=== PATIENT | male | born 1990 | race Caucasian/White ===

== ENCOUNTER 2017-03-11 07:46 | Emergency (ER) | payer SELFPAY ==
--- NOTE | 2017-03-11 08:13 | ER Document Report ---
ED General - General Chief Complaint: Knee Injury Stated Complaint: KNEE PAIN Time Seen by Provider: 03/11/17 08:01 Mode of Arrival: Ambulatory Information source: Patient Notes: 26-year-old male presents with complaints of right knee pain after roughhousing with a friend. Patient states he felt a pop sensation and feels that his knee moves side to side. Patient is able to bear weight but notes it feels weak TRAVEL OUTSIDE OF THE [place] IN LAST 30 DAYS: No - HPI Onset: Just prior to arrival Onset/Duration: Sudden Quality of pain: Sharp Severity: Mild Pain Level: 2 Associated symptoms: Body/muscle aches Exacerbated by: Movement, Walking Relieved by: Denies Similar symptoms previously: No Recently seen / treated by doctor: No - Related Data Allergies/Adverse Reactions: No Known Allergies Allergy (Unverified 03/11/17 07:47) Past Medical History - Social History Smoking Status: Current Every Day Smoker Cigarette use (# per day): Yes Chew tobacco use (# tins/day): No Smoking Education Provided: No Family History: Reviewed & Not Pertinent Patient has suicidal ideation: No Patient has homicidal ideation: No Renal/ Medical History: Denies: Hx Peritoneal Dialysis Review of Systems - Review of Systems Notes: REVIEW OF SYSTEMS: CONSTITUTIONAL : Denies fever, chills, or sweats. Denies recent illness. EENT: Denies eye, ear, throat, or mouth pain or symptoms. Denies nasal or sinus congestion or discharge. Denies throat, tongue, or mouth swelling or difficulty swallowing. CARDIOVASCULAR: Denies chest pain. Denies palpitations or racing or irregular heart beat. Denies ankle edema. RESPIRATORY: Denies cough, cold, or chest congestion. Denies shortness of breath, difficulty breathing, or wheezing. GASTROINTESTINAL: Denies abdominal pain or distention. Denies nausea, vomiting , or diarrhea. Denies blood in vomitus, stools, or per rectum. Denies black, tarry stools. Denies constipation. GENITOURINARY: Denies difficulty urinating, painful urination, burning, frequency, blood in urine, or discharge. MUSCULOSKELETAL: Admits to right knee pain SKIN: Denies rash, lesions or sores. HEMATOLOGIC : Denies easy bruising or bleeding. LYMPHATIC: Denies swollen, enlarged glands. NEUROLOGICAL: Denies confusion or altered mental status. Denies passing out or loss of consciousness. Denies dizziness or lightheadedness. Denies headache. Denies weakness or paralysis or loss of use of either side. Denies problems with gait or speech. Denies sensory loss, numbness, or tingling. Denies seizures. PSYCHIATRIC: Denies anxiety or stress. Denies depression, suicidal ideation, or homicidal ideation. ALL OTHER SYSTEMS REVIEWED AND NEGATIVE. Dictation was performed using [employer] voice recognition software PHYSICAL EXAMINATION: GENERAL: Well-appearing, well-nourished and in no acute distress. HEAD: Atraumatic, normocephalic. EYES: Pupils equal round and reactive to light, extraocular movements intact, sclera anicteric, conjunctiva are normal. ENT: Nares patent, oropharynx clear without exudates. Moist mucous membranes. NECK: Normal range of motion, supple without lymphadenopathy LUNGS: Breath sounds clear to auscultation bilaterally and equal. No wheezes rales or rhonchi. HEART: Regular rate and rhythm without murmurs ABDOMEN: Soft, nontender, nondistended abdomen. No guarding, no rebound. No masses appreciated. Musculoskeletal: no laxity noted, tender over the medial aspect of the right knee NEUROLOGICAL: Cranial nerves grossly intact. Normal speech, normal gait. Normal sensory, motor exams PSYCH: Normal mood, normal affect. SKIN: Warm, Dry, normal turgor, no rashes or lesions noted. Physical Exam - Vital signs Vitals: Temp Pulse Resp BP Pulse Ox 98.3 F 93 20 130/70 H 97 03/11/17 07:49 03/11/17 07:49 03/11/17 07:49 03/11/17 07:49 03/11/17 07:49 Course - Re-evaluation Re-evalutation: 03/11/17 09:10 X-ray is consistent with small effusion, I believe given patient's injury that there is a tendon rupture or tear, I will give patient a knee immobilizer pain control and follow-up with orthopedics with crutches After performing a Medical Screening Examination, I estimate there is LOW risk for INTRACRANIAL HEMORRHAGE, UNSTABLE SPINE FRACTURE, CENTRAL CORD SYNDROME, CAUDA EQUINA, THORACIC AORTIC DISSECTION, PNEUMOTHORAX, PERFORATED BOWEL, RUPTURED ABDOMINAL AORTIC ANEURYSM, ACUTE TENDON RUPTURE, COMPARTMENT SYNDROME, or OPEN FRACTURE, thus I consider the discharge disposition reasonable. Also, there is no evidence or peritonitis, sepsis, or toxicity. I have reevaluated this patient multiple times and no significant life threatening changes are noted. The patient and I have discussed the diagnosis and risks, and we agree with discharging home to follow-up with their primary doctor with the understanding that symptoms and presentations can change. We also discussed returning to the Emergency Department immediately if new or worsening symptoms occur. We have discussed the symptoms which are most concerning (e.g., bloody stool, fever, changing or worsening pain, vomiting) that necessitate immediate return. - Vital Signs Vital signs: Temp Pulse Resp BP Pulse Ox 98.3 F 93 20 130/70 H 97 03/11/17 07:49 03/11/17 07:49 03/11/17 07:49 03/11/17 07:49 03/11/17 07:49 - Diagnostic Test Radiology reviewed: Image reviewed - report given to patient, Reports reviewed Discharge - Discharge Clinical Impression: tendon injury knee Right knee pain Qualifiers: Chronicity: acute Qualified Code(s): M25.561 - Pain in right knee Condition: Stable Disposition: HOME, SELF-CARE Instructions: Suspected Internal Knee Injury ([facility]) Prescriptions: Hydrocodone/Acetaminophen [[place] 5-325 mg Tablet] 1 tab PO Q6 #14 tablet Referrals: RADHA STOUT MD [ACTIVE STAFF] - Follow up tomorrow
[2017-03-11] MEDS ORDERED: HYDROCODONE/ACETAMINOPHEN 5-325 MG TABLET PO ONE (08:45)
--- NOTE | 2017-03-11 09:07 | RADIOLOGY REPORT (SQ) ---
EXAM DESCRIPTION: KNEE RIGHT 4 VIEWS COMPLETED DATE/TIME: 03/11/2017 8:26 am REASON FOR STUDY: injury COMPARISON: None. NUMBER OF VIEWS: Four views. TECHNIQUE: AP, lateral, and both oblique radiographic images acquired of the right knee. LIMITATIONS: None. FINDINGS: MINERALIZATION: Normal. BONES: No acute fracture or dislocation. No worrisome bone lesions. JOINT: Trace suprapatellar knee joint effusion. SOFT TISSUES: No soft tissue swelling. No radio-opaque foreign body. OTHER: No other significant finding. IMPRESSION: Trace suprapatellar knee joint effusion. No acute fracture or malalignment TECHNICAL DOCUMENTATION: JOB ID: [id number] [employer]- All Rights Reserved
[2017-03-11 09:29] VITALS: BP 142/66
== END 2017-03-11 09:28 | disposition home or self-care (01) ==
LOC: ER 07:46
DX: S89.90XA Unspecified injury of unspecified lower leg, initial encounter (principal); M25.561 Pain in right knee; X50.0XXA Overexertion from strenuous movement or load, initial encounter; Y93.83 Activity, rough housing and horseplay; F17.210 Nicotine dependence, cigarettes, uncomplicated
CPT/HCPCS: 99283; 73564; L1830

== ENCOUNTER 2018-02-11 22:45 | Emergency (ER) | payer SELFPAY ==
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
[2018-02-12] MEDS ORDERED: OXYCODONE-ACETAMINOPHEN 5-325 MG TABLET PO ONE (00:13)
[2018-02-12] MEDS ORDERED: IBUPROFEN 800 MG TABLET PO ONE (00:14)
[2018-02-12 01:50] VITALS: BP 141/78
== END 2018-02-12 00:45 | disposition home or self-care (01) ==
LOC: ER 22:45
DX: S89.91XA Unspecified injury of right lower leg, initial encounter (principal); F17.210 Nicotine dependence, cigarettes, uncomplicated; W14.XXXA Fall from tree, initial encounter; Y92.009 Unspecified place in unspecified non-institutional (private) residence as the place of occurrence of the external cause
CPT/HCPCS: 99283; 73564; L1830

== ENCOUNTER 2018-11-07 23:30 | Emergency (ER) | payer OTHER ==
[2018-11-08] MEDS ORDERED: FENTANYL CITRATE INJ/PF 100 MCG/2 ML AMPUL IV ONE (00:25)
[2018-11-08 00:32] VITALS: BP 122/82
[2018-11-08] MEDS ORDERED: NORMAL SALINE 1000 ML 1,000 ML IV ONE (00:32)
[2018-11-08 00:51] LABS: ABSOLUTE LYMPHOCYTES (AUTO) 2.4 10^3/uL (0.5-4.7); ABSOLUTE MONOCYTES (AUTO) 1.4 10^3/uL (0.1-1.4); ABSOLUTE NEUT (AUTO) 11.6 10^3/uL (1.7-8.2); BASOPHILS % (AUTO) 0.3 % (0-2); EOSINOPHILS % (AUTO) 0.3 % (0-6); HEMATOCRIT 47.5 % (37.9-51.0); HEMOGLOBIN 16.1 g/dL (13.5-17.0); LYMPHOCYTES % (AUTO) 15.5 % (13-45); MEAN CORPUSCULAR HEMOGLOBIN 30.8 pg (27.0-33.4); MEAN CORPUSCULAR HGB CONC 33.9 g/dL (32.0-36.0); MEAN CORPUSCULAR VOLUME 91 fl (80-97); PLATELET COUNT 255 10^3/uL (150-450); RED BLOOD COUNT 5.22 10^6/uL (4.35-5.55); RED CELL DISTRIBUTION WIDTH 14.2 % (11.5-14.0); SEGMENTED NEUTROPHILS % (AUTO) 74.9 % (42-78); TOTAL CELLS COUNTED % (AUTO) 100 %; WHITE BLOOD COUNT 15.5 10^3/uL (4.0-10.5)
[2018-11-08 01:13] LABS: ALANINE AMINOTRANSFERASE 20 U/L (21-72); ALBUMIN 3.8 g/dL (3.5-5.0); ALKALINE PHOSPHATASE 61 U/L (38-126); ANION GAP 11 (5-19); ASPARTATE AMINO TRANSFERASE 22 U/L (17-59); BILIRUBIN,DIRECT 0.3 mg/dL (0.0-0.4); BILIRUBIN,TOTAL 0.8 mg/dL (0.2-1.3); BLOOD UREA NITROGEN 19 mg/dL (7-20); CALCIUM 9.1 mg/dL (8.4-10.2); CARBON DIOXIDE 21 mmol/L (22-30); CHLORIDE 106 mmol/L (98-107); GLUCOSE 88 mg/dL (75-110); POTASSIUM 4.3 mmol/L (3.6-5.0); TOTAL PROTEIN 6.4 g/dL (6.3-8.2)
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
[2018-11-08] MEDS ORDERED: ACETAMINOPHEN 325 MG TABLET PO ONE (02:48)
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
[2018-11-08] MEDS ORDERED: KETOROLAC TROMETHAMINE INJ/PF 30 MG/1 ML SDV IV ONE (03:12)
[2018-11-08 03:35] LABS: APPEARANCE,URINE CLEAR; BILIRUBIN,URINE NEGATIVE (NEGATIVE); COLOR,URINE YELLOW; GLUCOSE, URINE NEGATIVE (NEGATIVE); KETONES,URINE 20 mg/dL (NEGATIVE); LEUKOCYTE ESTERASE,URINE NEGATIVE (NEGATIVE); NITRITE,URINE NEGATIVE (NEGATIVE); PROTEIN,URINE 30 mg/dL (NEGATIVE); URINE SPECIFIC GRAVITY 1.045; UROBILINOGEN,URINE NEGATIVE mg/dL (<2.0)
== END 2018-11-08 03:34 | disposition home or self-care (01) ==
LOC: ER 23:30
DX: M25.551 Pain in right hip (principal); S70.12XA Contusion of left thigh, initial encounter; S70.11XA Contusion of right thigh, initial encounter; R10.84 Generalized abdominal pain; R10.817 Generalized abdominal tenderness; M54.9 Dorsalgia, unspecified; N48.89 Other specified disorders of penis; R41.3 Other amnesia; V03.10XA Pedestrian on foot injured in collision with car, pick-up truck or van in traffic accident, initial encounter; Y92.411 Interstate highway as the place of occurrence of the external cause; Y93.01 Activity, walking, marching and hiking; F17.200 Nicotine dependence, unspecified, uncomplicated; F12.10 Cannabis abuse, uncomplicated; D72.829 Elevated white blood cell count, unspecified
CPT/HCPCS: 99284; 96361; 96374; 96375; 36415; 85025; 80053; 81001; 70450; 71260; 74177; J3010; J1885; J7030

== ENCOUNTER 2019-01-16 14:25 | Emergency (ER) | payer SELFPAY ==
[2019-01-16] MEDS ORDERED: LIDOCAINE 1%/EPINEPHRINE INJ 20 ML VIAL INJ ONE (15:19)
--- NOTE | 2019-01-16 15:23 | ER Document Report ---
ED Medical Screen (RME) - General Chief Complaint: Suicidal Ideation Stated Complaint: PSYCH Time Seen by Provider: 01/16/19 15:08 Notes: Patient is a 28-year-old male who presents the emergency department with suicidal ideation. He feels suicidal at this time. He attempted to cut himself and he stated, "I just wanted to finish myself.". He has depression and stress. He is also on human growth hormone. He admits to smoking marijuana. He drinks 340 ounces a day. Last drink was at 10:00 this morning. He is up-to-date on his tetanus vaccine. Exam: Right forearm laceration about 3 cm in length. Multiple superficial cuts noted to right arm. I have greeted and performed a rapid initial assessment of this patient. A comprehensive ED assessment and evaluation of the patient, analysis of test results and completion of medical decision making process will be conducted by an additional ED providers. TRAVEL OUTSIDE OF THE [place] IN LAST 30 DAYS: No - Related Data Allergies/Adverse Reactions: No Known Allergies Allergy (Verified 01/16/19 15:06) Past Medical History - Social History Chew tobacco use (# tins/day): No Frequency of alcohol use: Heavy Drug Abuse: Marijuana Renal/ Medical History: Denies: Hx Peritoneal Dialysis Physical Exam - Vital signs Vitals: Temp Pulse Resp BP Pulse Ox 98.3 F 83 18 132/73 H 97 01/16/19 14:33 01/16/19 14:33 01/16/19 14:33 01/16/19 14:33 01/16/19 14:33 Course - Vital Signs Vital signs: Temp Pulse Resp BP Pulse Ox 98.3 F 83 18 132/73 H 97 01/16/19 14:33 01/16/19 14:33 01/16/19 14:33 01/16/19 14:33 01/16/19 14:33
[2019-01-16 15:56] LABS: ABSOLUTE BASOPHILS # (AUTO) 0.2 10^3/uL (0.0-0.2); ABSOLUTE LYMPHOCYTES (AUTO) 1.7 10^3/uL (0.5-4.7); ABSOLUTE MONOCYTES (AUTO) 1.1 10^3/uL (0.1-1.4); ABSOLUTE NEUT (AUTO) 11.1 10^3/uL (1.7-8.2); BASOPHILS % (AUTO) 1.1 % (0-2); EOSINOPHILS % (AUTO) 0.1 % (0-6); HEMATOCRIT 47.4 % (37.9-51.0); MEAN CORPUSCULAR HEMOGLOBIN 31.8 pg (27.0-33.4); MEAN CORPUSCULAR HGB CONC 33.8 g/dL (32.0-36.0); MEAN CORPUSCULAR VOLUME 94 fl (80-97); MONOCYTES % (AUTO) 8.2 % (3-13); PLATELET COUNT 256 10^3/uL (150-450); RED BLOOD COUNT 5.04 10^6/uL (4.35-5.55); RED CELL DISTRIBUTION WIDTH 13.7 % (11.5-14.0); SEGMENTED NEUTROPHILS % (AUTO) 78.6 % (42-78); TOTAL CELLS COUNTED % (AUTO) 100 %; WHITE BLOOD COUNT 14.1 10^3/uL (4.0-10.5)
[2019-01-16 16:00] LABS: APPEARANCE,URINE CLEAR; BILIRUBIN,URINE NEGATIVE (NEGATIVE); COLOR,URINE YELLOW; GLUCOSE, URINE NEGATIVE (NEGATIVE); KETONES,URINE NEGATIVE (NEGATIVE); LEUKOCYTE ESTERASE,URINE NEGATIVE (NEGATIVE); NITRITE,URINE NEGATIVE (NEGATIVE); PROTEIN,URINE NEGATIVE (NEGATIVE); URINE SPECIFIC GRAVITY 1.008; UROBILINOGEN,URINE NEGATIVE mg/dL (<2.0)
[2019-01-16 16:17] LABS: ALBUMIN 4.2 g/dL (3.5-5.0); ALKALINE PHOSPHATASE 71 U/L (38-126); ANION GAP 6 (5-19); ASPARTATE AMINO TRANSFERASE 22 U/L (17-59); BILIRUBIN,DIRECT 0.1 mg/dL (0.0-0.4); BILIRUBIN,TOTAL 0.4 mg/dL (0.2-1.3); BLOOD UREA NITROGEN 9 mg/dL (7-20); CALCIUM 9.4 mg/dL (8.4-10.2); CARBON DIOXIDE 28 mmol/L (22-30); CHLORIDE 107 mmol/L (98-107); GLUCOSE 85 mg/dL (75-110); POTASSIUM 4.8 mmol/L (3.6-5.0); TOTAL PROTEIN 7.1 g/dL (6.3-8.2); URINE AMPHETAMINES SCREEN NEGATIVE; URINE BARBITURATES SCREEN NEGATIVE; URINE BENZODIAZEPINES SCREEN NEGATIVE; URINE COCAINE SCREEN NEGATIVE; URINE MARIJUANA (THC) SCREEN UNCONFIRMED POSITIVE; URINE METHADONE SCREEN NEGATIVE; URINE PHENCYCLIDINE SCREEN NEGATIVE
[2019-01-16 16:21] LABS: ACETAMINOPHEN < 10 ug/mL (10-30); ALCOHOL < 10 mg/dL (NONE DETECTED); SALICYLATE < 1.0 mg/dL (2.0-20.0)
[2019-01-16] MEDS ORDERED: NICOTINE 21 MG/24 HR PATCH.TD24 TD ONE (17:27)
--- NOTE | 2019-01-16 17:34 | PSYCHOLOGICAL NOTE ---
Psych Note - Psych Note Date seen by psych provider: 01/16/19 Time seen by psych provider: 16:50 Psych Note: Reason for Consult: Suicidal ideation Sent permissions: Patient's girlfriend, Akila, at bedside per patient's request Patient is a 28-year-old male who presents the emergency department with suicidal ideation. He feels suicidal at this time. He attempted to cut himself and he stated, "I just wanted to finish myself.". He has depression and stress. He is also on human growth hormone. He admits to smoking marijuana. He drinks 340 ounces a day. Last drink was at 10:00 this morning. Patient reports that he was brought [facility] by his girlfriend for suicidal ideation. He reports that he was "filleting himself." He denies normally engaging in self-harm confirms previous attempts and when he was younger. Patient disclosed that his parents when he was 10 and was in foster care for the rest of his adolescence. He reports that he was told his parents were on vacation in [place] when their private plane went down and no one was found. He reports he is unsure because he was only 10 at the time. Patient disclosed that from 10 to 15 years old he attempted to hang himself 4 times and needed to be cut down. Patient denies any attempts at suicide since 15 years old. Patient disclosed that every year at this time he always has difficulties because he feels he is never been able to get over losing his parents. He reports that he is "getting older" and feels that "the crap I am going through just hit me like a ton of bricks." He states that financial difficulties having difficulty being employed and states "it is always something new." Patient reports that he was illegally using the human growth hormone and attempted to change the way he looked; "I wanted to change the way I looked I want to be bigger and stronger." He states that he did 2 sessions at however is been off of it for 2 to 3 weeks but reports continued "roid rages" and quickly getting angry. He continued to report that typically November 03 is very difficult because of his mom's birthday and January through March are very bad because the holidays. Patient denies ever having inpatient psychiatric treatment and has not had any outpatient psychiatric treatment "for the last 20 years." Patient states that approximately a week and 1/2 to 2 weeks ago he was donating plasma when he was pulled aside and states he was told there was concern that his blood cells were rapidly deteriorating and turning black. He was told he likely had multiple melanoma. He reports that he has been "throwing up and pooping blood" and last few days has developed an upper respiratory issue. He describes feeling "scared shitless" and having difficulty sleeping. He denies following up with a medical doctor yet and states that he just submitted Medicaid paperwork the day before yesterday. Patient is alert and orientated to person, place, time and circumstance. Mood is dysphoric with congruent affect. Patient endorses suicidal ideation with cutting. Patient denies homicidal ideation. Delusions are absent and behaviors congruent with an intact reality based presentation I organized and linear thought process. Eye contact is well-maintained. Conversational speech is within normal rate, tone and prosody. Intellectual abilities appear to be within the average range. Attention and concentration are good. Insight, judgment, impulse control are fair. Diagnosis: Suicidal ideation with multiple superficial cuts Medication recommendations per [facility]'s contracted psychiatrist Dr. Galina TRAN are as follows Impression\\plan: Patient is recommended for [facility] petition for overnight mental health observation. Patient presents after engaging in self-harm behavior and denies any previous maladaptive coping skill of cutting engagement. Patient states he has not attempted suicide since the age of 15. Patient denies any mental health services. Patient identifies multiple triggers to include loss of parents, growing up in the foster care system, using steroids and attempt to body build, and finding out he has cancer. She will be reevaluated Dr. Beck was consulted to care management of this patient; attending physicians in agreement with recommendations and disposition.
--- NOTE | 2019-01-16 17:39 | EKG REPORT ---
SEVERITY:- ABNORMAL ECG - SINUS RHYTHM PROBABLE LEFT VENTRICULAR HYPERTROPHY ST ELEV, PROBABLE NORMAL EARLY REPOL PATTERN TALL T WAVES, PROBABLY NORMAL VARIANT : Confirmed by: Tyler Kaufman MD 16-Jan-2019 17:38:49
[2019-01-17] MEDS ORDERED: OLANZAPINE 5 MG TAB.RAPDIS PO ONE ×2 (02:13→17:18)
[2019-01-17] MEDS ORDERED: KETOROLAC TROMETHAMINE 60 MG/2 ML SDV IM ONE (02:13)
--- NOTE | 2019-01-17 02:46 | ER Document Report ---
ED Psych Disorder / Suicide - General Chief Complaint: Suicidal Ideation Stated Complaint: PSYCH Time Seen by Provider: 01/16/19 15:08 Notes: Patient is a 28-year-old male who comes in today with suicidal ideation and self-inflicted wound with a knife. Patient apparently has been taking human growth hormone recently because he was hoping to gain muscle mass. Patient has had incidence of "roid rage." He has multiple self-inflicted lacerations to his arms. He did this with a hunting knife. Last tetanus was within the last year. Patient states that he lost his job and this is what precipitated this event today. TRAVEL OUTSIDE OF THE [place] IN LAST 30 DAYS: No - HPI Patient complains to provider of: Suicidal ideation, Self injury Suicide Risk Factors: Frightened friends/family Situational problems related to: Lost job Suicide Attempt Method: Stabbing/Cutting Injury to: Upper extremity - Related Data Allergies/Adverse Reactions: No Known Allergies Allergy (Verified 01/16/19 15:06) Past Medical History - Social History Smoking Status: Current Every Day Smoker Chew tobacco use (# tins/day): No Frequency of alcohol use: Heavy Drug Abuse: Marijuana Family History: Reviewed & Not Pertinent Patient has suicidal ideation: Yes Patient has homicidal ideation: No - Medical History Medical History: Negative Renal/ Medical History: Denies: Hx Peritoneal Dialysis Surgical Hx: Negative - Immunizations Immunizations up to date: Yes Review of Systems - Review of Systems Constitutional: No symptoms reported EENT: No symptoms reported Cardiovascular: No symptoms reported Respiratory: No symptoms reported Gastrointestinal: No symptoms reported Genitourinary: No symptoms reported Male Genitourinary: No symptoms reported Musculoskeletal: No symptoms reported Skin: See HPI Hematologic/Lymphatic: No symptoms reported Neurological/Psychological: See HPI Physical Exam - Vital signs Vitals: Temp Pulse Resp BP Pulse Ox 98.3 F 83 18 132/73 H 97 01/16/19 14:33 01/16/19 14:33 01/16/19 14:33 01/16/19 14:33 01/16/19 14:33 Interpretation: Normal - General General appearance: Appears well, Alert - HEENT Head: Normocephalic, Atraumatic Eyes: Normal Pupils: PERRL - Respiratory Respiratory status: No respiratory distress Chest status: Nontender Breath sounds: Normal Chest palpation: Normal - Cardiovascular Rhythm: Regular Heart sounds: Normal auscultation Murmur: No - Abdominal Inspection: Normal Distension: No distension Bowel sounds: Normal Tenderness: Nontender Organomegaly: No organomegaly - Back Back: Normal, Nontender - Extremities General upper extremity: Normal inspection, Nontender, Normal color, Normal ROM, Normal temperature General lower extremity: Normal inspection, Nontender, Normal color, Normal ROM, Normal temperature, Normal weight bearing. No: Camila's sign - Neurological Neuro grossly intact: Yes Cognition: Normal Orientation: AAOx4 Megan Coma Scale Eye Opening: Spontaneous Damar Coma Scale Verbal: Oriented Megan Coma Scale Motor: Obeys Commands Megan Coma Scale Total: 15 Speech: Normal Motor strength normal: LUE, RUE, LLE, RLE Sensory: Normal - Psychological Associated symptoms: Normal affect, Normal mood - Skin Skin Temperature: Warm Skin Moisture: Dry Skin Color: Normal Skin irregularity: Laceration - Multiple lacerations to bilateral upper extremities. Right wrist with 3 cm laceration. Course - Re-evaluation Re-evalutation: 01/17/19 02:47 Patient is a 28-year-old male with suicidal ideation recently using male growth hormone who lost his job and comes in with multiple self-inflicted lacerations and suicidal ideation. He has been calm in the emergency department been having a difficult time sleeping. Zyprexa ordered and Toradol given for pain in arm due to lacerations. Please see procedure note. He will be evaluated by mental health in the morning. Otherwise medically stable. Tetanus up-to-date. - Vital Signs Vital signs: Temp Pulse Resp BP Pulse Ox 98.6 F 67 18 122/72 100 01/16/19 20:29 01/16/19 20:29 01/16/19 14:33 01/16/19 20:29 01/16/19 20:29 - Laboratory Result Diagrams: 01/16/19 15:30 01/16/19 15:30 Laboratory results interpreted by me: 01/16/19 01/16/19 15:30 15:30 WBC 14.1 H Lymph % (Auto) 12.0 L Absolute Neuts (auto) 11.1 H Seg Neutrophils % 78.6 H Salicylates < 1.0 L Acetaminophen < 10 L Procedures - Laceration/Wound Repair Right Wound length (cm): 3 Wound's Depth, Shape: Linear Laceration pre-procedure: Sterile PPE donned, Sterile drapes applied Anesthetic type: 1% Lidocaine Wound explored: Clean Irrigated w/ Saline (mLs): 20 Wound Repaired With: Sutures Suture Size/Type: 5:0 Number of Sutures: 8 Layer Closure?: No Post-procedure wound care: Sterile dressing applied Post-procedure NV exam normal: Yes Complications: No Discharge - Discharge Clinical Impression: Suicidal ideation Self-inflicted laceration of wrist Qualifiers: Encounter type: initial encounter Laterality: right Qualified Code(s): S61.511A - Laceration without foreign body of right wrist, initial encounter Condition: Stable Disposition: OTHER
[2019-01-17] MEDS ORDERED: ACETAMINOPHEN 325 MG TABLET PO ONE (14:01)
--- NOTE | 2019-01-17 17:20 | ER Document Report ---
Doctor's Note Notes: 01/17/19 17:19 Nurse's notes reviewed, physician notes reviewed as well as mental health notes reviewed. Afebrile vital stable no distress. Clinical exam was unremarkable, patient did report some pain due to having laceration that was repaired. No fevers or chills, denies any homicidal suicidal ideation. Eating and drinking without any issues. Patient given oral Tylenol for pain control. We will continue to monitor.
[2019-01-17] MEDS ORDERED: NICOTINE 21 MG/24 HR PATCH.TD24 TD ONE (18:09)
--- NOTE | 2019-01-17 18:10 | ER Document Report ---
Doctor's Note Notes: 01/17/19 18:06 does not want to be involved in patient's care, patient is going to be going to a facility 8 AM in the morning, since patient will be going home to an empty house and does not want to be primary care, and the fact that he was suicidal last night required 8 simple stitches due to a self-inflicted la ceration to his forearm, feel that it would be most prudent to discharge patient in the morning when he can be released to a facility where he can be monitored, patient does not have suicidal ideation or homicidal ideation however going home to an empty house without the support of his who verbally stated she does not want to be a part of his care, does not seem ideal and waiting until the mo rning to discharge him seems to be the safest option to discharge patient from the emergency room. She verbalized understanding of this plan of care and agree with plan of care. 01/17/19 18:09
[2019-01-17] MEDS: OLANZAPINE 5 MG TAB.RAPDIS PO SCH (18:14)
[2019-01-17] MEDS ORDERED: IBUPROFEN 800 MG TABLET PO ONE (19:40)
[2019-01-18] MEDS: OLANZAPINE 5 MG TAB.RAPDIS PO SCH (10:16)
--- NOTE | 2019-01-18 11:00 | ER Document Report ---
Doctor's Note Notes: 01/18/19 10:59 01/18/19 10:56 PHYSICAL EXAMINATION: GENERAL: Well-appearing and in no acute distress. HEAD: Atraumatic, normocephalic. EYES: sclera anicteric, conjunctiva are normal. ENT: Moist mucous membranes. NECK: Normal range of motion, supple without lymphadenopathy LUNGS: CTAB and equal. No wheezes rales or rhonchi. HEART: Regular rate and rhythm without murmurs EXTREMITIES: Normal range of motion, superficial scratches to right forearm BACK: No midline tenderness no CVA tenderness NEUROLOGICAL: Cranial nerves grossly intact. Normal speech. Normal gait. PSYCH: Normal mood, normal affect. Denies any suicidal homicidal ideation SKIN: Warm, Dry, normal turgor, no rashes or lesions noted Reviewed nursing notes as well as mental health team notes. Reviewed labs and vital signs. Patient medically stable for discharge or transfer pending mental health recommendations. Mental health team states that they have patient set up to be discharged home with a friend. That the plan is to have patient seen as a walk-in at [facility] today. Recommends Zyprexa 5 mg twice a day 15-day course be written. Discussed patient presentation and plan of care with Dr. Ingram who is agreeable with discharge plan of care at this time. 01/18/19 10:59
[2019-01-18 11:10] VITALS: BP 113/78
== END 2019-01-18 11:18 | disposition home or self-care (01) ==
LOC: ER 14:25
DX: R45.851 Suicidal ideations (principal); S51.811A Laceration without foreign body of right forearm, initial encounter; S61.511A Laceration without foreign body of right wrist, initial encounter; X78.9XXA Intentional self-harm by unspecified sharp object, initial encounter; F31.9 Bipolar disorder, unspecified; F43.9 Reaction to severe stress, unspecified; F17.200 Nicotine dependence, unspecified, uncomplicated; F15.90 Other stimulant use, unspecified, uncomplicated
CPT/HCPCS: 93005; 36415; 80307 ×4; 85025; 80053; 81001; 93010; 12002; J3490; J1885

== ENCOUNTER 2019-07-01 10:28 | Emergency (ER) | payer SELFPAY ==
[2019-07-01 10:34] VITALS: BP 126/77
--- NOTE | 2019-07-01 10:41 | ER Document Report ---
HPI - HPI Time Seen by Provider: 07/01/19 10:33 Onset: Just prior to arrival Onset/Duration: Sudden Quality of pain: No pain Associated Symptoms: None Exacerbated by: Denies - EENT EENT: REPORTS: Sore Throat - NEURO Neurology: REPORTS: Headache - REPRODUCTIVE Reproductive: DENIES: : Past Medical History - General Information source: Patient - Social History Smoking Status: Current Every Day Smoker Cigarette use (# per day): Yes Chew tobacco use (# tins/day): No Smoking Education Provided: No Frequency of alcohol use: None Family History: Reviewed & Not Pertinent Renal/ Medical History: Denies: Hx Peritoneal Dialysis - Immunizations Immunizations up to date: Yes Vertical Provider Document - CONSTITUTIONAL Agree With Documented VS: Yes - INFECTION CONTROL TRAVEL OUTSIDE OF THE [place] IN LAST 30 DAYS: No - HEENT HEENT: Atraumatic, Conjuctival Injection - NECK Neck: Normal Inspection - RESPIRATORY Respiratory: Breath Sounds Normal - CARDIOVASCULAR Pulses: Normal: Brachial, Radial, Carotid, Femoral - GI/ABDOMEN Gastrointestinal: Abdomen Soft, Abdomen Non-Tender - REPRODUCTIVE Male Genitalia: Normal Inspection - MUSCULOSKELETAL/EXTREMETIES Musculoskeletal/Extremeties: MAEW - NEURO Level of Consciousness: Awake, Alert Course - Re-evaluation Re-evalutation: 07/01/19 10:38 This is a 28-year-old male who presented to the emergency room today stating that he had 4 wisdom teeth coming in and has discomfort at all areas. He also has discomfort to his lower back lateral to midline on the left side with no numbness no tingling no loss of bowel bladder function no saddle anesthesia ambulatory with a rhythmic and steady gait patient is able to touch his toes in the triage area. - Vital Signs Vital signs: Temp Pulse Resp BP Pulse Ox 98.0 F 65 16 126/77 H 97 07/01/19 10:32 07/01/19 10:32 07/01/19 10:32 07/01/19 10:32 07/01/19 10:32 Discharge - Discharge Clinical Impression: Dentalgia, Low back pain Disposition: HOME, SELF-CARE Instructions: Toothache ([facility]), Low Back Pain ([facility]) Prescriptions: Naproxen Sodium [Naproxen Sodium ER] 500 mg PO Q12 PRN #20 tablet.sa PRN Reason: Tramadol HCl [Ultram] 50 mg PO QID #30 tablet
== END 2019-07-01 10:53 | disposition home or self-care (01) ==
LOC: ER 10:28
DX: K08.9 Disorder of teeth and supporting structures, unspecified (principal); M54.5 Low back pain; J02.9 Acute pharyngitis, unspecified; R51 Headache; F17.210 Nicotine dependence, cigarettes, uncomplicated
CPT/HCPCS: 99283

== ENCOUNTER 2019-09-21 08:37 | Emergency (ER) | payer SELFPAY ==
[2019-09-21] MEDS ORDERED: METHYLPREDNISOLONE INJ 125 MG/2 ML SDV IM ONE (09:04)
[2019-09-21] MEDS ORDERED: CYCLOBENZAPRINE HCL 10 MG TABLET PO ONE (09:04)
[2019-09-21] MEDS ORDERED: KETOROLAC TROMETHAMINE 60 MG/2 ML SDV IM ONE (09:04)
--- NOTE | 2019-09-21 09:09 | ER Document Report ---
ED Extremity Problem, Lower - General Chief Complaint: Leg Pain Stated Complaint: RIGHT LEG PAIN Time Seen by Provider: 09/21/19 08:55 Primary Care Provider: SHARLENE CARDONA PA-C [PHYSICIAN IT DESKTOP SUPPORT TECHNICIAN] - Follow up as needed Mode of Arrival: Ambulatory Information source: Patient Notes: 29-year-old male previous history consistent with herniated lumbar disc with right leg pain secondary to an injury over a year ago. Patient states is been seen in the emergency room is being followed by [facility] has been receiving prescriptions of hydrocodone which he ran out of 8 days ago. States he is waiting for physical therapy. Presents to the emergency room today complaining of worsening pain for the past 8 to 10 days. He denies any new trauma or injury. States pain does radiate from his back and his right leg. He denies any loss control of bowels or bladder, no saddle anesthesia, no red flags. Also complains of some dysuria for the past 2 to 3 days denies any penile discharge. States he is not currently taking any medications for his pain. TRAVEL OUTSIDE OF THE [place] IN LAST 30 DAYS: No - Related Data Allergies/Adverse Reactions: No Known Allergies Allergy (Verified 07/01/19 10:34) Past Medical History - Social History Smoking Status: Current Every Day Smoker Frequency of alcohol use: Occasional Drug Abuse: Marijuana Family History: Reviewed & Not Pertinent Patient has homicidal ideation: No Renal/ Medical History: Denies: Hx Peritoneal Dialysis Past Surgical History: Reports: Hx Orthopedic Surgery - Immunizations Immunizations up to date: Yes Review of Systems - Review of Systems Constitutional: No symptoms reported Cardiovascular: No symptoms reported Respiratory: No symptoms reported Gastrointestinal: No symptoms reported Genitourinary: Dysuria Male Genitourinary: No symptoms reported Musculoskeletal: Back pain, Muscle pain Skin: No symptoms reported Neurological/Psychological: No symptoms reported -: Yes All other systems reviewed and negative Physical Exam - Vital signs Vitals: Temp Pulse Resp BP Pulse Ox 97.7 F 72 16 125/68 100 09/21/19 08:40 09/21/19 08:40 09/21/19 08:40 09/21/19 08:40 09/21/19 08:40 - General General appearance: Appears well, Alert In distress: Mild - Respiratory Respiratory status: No respiratory distress Chest status: Nontender Breath sounds: Normal Chest palpation: Normal - Cardiovascular Rhythm: Regular Heart sounds: Normal auscultation Murmur: No - Back Back: Tender, Vertebra tenderness - Tenderness on palpation to the vertebral spine from L3-S1. There is tenderness over the right sciatic notch. Muscle spasms are palpated in the lower lumbar region. Full range of motion with flexion extension of the lower back. Hesitant straight leg raising on the right at 35 degrees. Negative to the left. No: Deformity/step-off, CVA tenderness - Extremities General upper extremity: Normal inspection, Nontender, Normal color, Normal ROM, Normal temperature General lower extremity: Normal inspection, Nontender, Normal color, Normal ROM, Normal strength, Normal temperature, Other - Limping noted to right leg.. No: Camila's sign - Neurological Neuro grossly intact: Yes Cognition: Normal Orientation: AAOx4 Megan Coma Scale Eye Opening: Spontaneous Megan Coma Scale Verbal: Oriented Megan Coma Scale Motor: Obeys Commands Baldwin Coma Scale Total: 15 Speech: Normal Motor strength normal: LUE, RUE, LLE, RLE Sensory: Normal Knee - Reflex grade: 2 = Normal Ankle - Reflex grade: 2 = Normal Notes: Patient is ambulatory with a slight limp noted to the right leg. He is n eurovascularly intact. Course - Re-evaluation Re-evalutation: 09/21/19 09:15 MDM: Patient with history of chronic back and right leg pain. Being seen by [facility] for pain management. No new trauma or injury. He is neurovascularly intact. Will medicate with IM Solu-Medrol, IM Toradol, muscle relaxers and reevaluate. 09/21/19 10:14 Patient with minimal improvement in pain however he is able to ambulate with a steady gait and negative straight leg raising bilaterally. Had long discussion with patient that we cannot give him any additional narcotics as this is chronic pain and he is being seen outpatient for it. Reviewed negative urinalysis with patient. Take all medications as prescribed. Patient was given strict return to the emergency room guidelines. Return for any new or worsening symptoms. All questions were answered. Patient verbalized understanding and agrees with plan of care. 09/21/19 10:14 - Vital Signs Vital signs: Temp Pulse Resp BP Pulse Ox 98.1 F 74 16 126/72 H 100 09/21/19 10:34 09/21/19 10:34 09/21/19 10:34 09/21/19 10:34 09/21/19 10:34 Discharge - Discharge Clinical Impression: Chronic low back pain with right-sided sciatica Qualifiers: Back pain laterality: right Qualified Code(s): M54.41 - Lumbago with sciatica, right side Condition: Stable Disposition: HOME, SELF-CARE Instructions: Chronic Back Pain ([facility]), Sciatica ([facility]) Additional Instructions: You have been seen in the Emergency Department (ED) today for back pain. Your workup and exam have not shown any acute abnormalities and you are likely suffering from muscle strain or possible problems with your discs, but there is no treatment that will fix your symptoms at this time. Please take the naproxen that has been prescribed as directed. Also take the steroid taper start tomorrow along with the Robaxin. You should also purchase a local lidocaine cream such as "aspercreme with lidocaine" and use per bottle instructions to the affected area. Apply heat to the area as often as you are able. Continue to keep active and avoid prolonged periods of bed rest. Please follow up with your doctor as soon as possible regarding today's ED visit and your back pain. Return to the ED for worsening back pain, fever, weakness or numbness of either leg, or if you develop either (1) an inability to urinate or have bowel movements, or (2) loss of your ability to control your bathroom functions (if you start having "accidents"), or if you develop other new symptoms that concern you.concern you. Prescriptions: Prednisone [Deltasone 20 mg Tablet] See Protocol PO DAILY 9 Days #18 tablet Naproxen 500 mg PO BID PRN #10 tablet PRN Reason: Methocarbamol [Robaxin-750] 750 mg PO TID 3 Days #15 tablet Referrals: SHARLENE CARDONA PA-C [PHYSICIAN IT DESKTOP SUPPORT TECHNICIAN] - Follow up as needed
[2019-09-21] MEDS ORDERED: METHOCARBAMOL 750 MG TABLET PO ONE (09:18)
[2019-09-21 10:05] LABS: APPEARANCE,URINE CLEAR; BILIRUBIN,URINE NEGATIVE (NEGATIVE); COLOR,URINE YELLOW; GLUCOSE, URINE NEGATIVE (NEGATIVE); KETONES,URINE NEGATIVE (NEGATIVE); LEUKOCYTE ESTERASE,URINE NEGATIVE (NEGATIVE); NITRITE,URINE NEGATIVE (NEGATIVE); PROTEIN,URINE NEGATIVE (NEGATIVE); URINE SPECIFIC GRAVITY 1.012; UROBILINOGEN,URINE NEGATIVE mg/dL (<2.0)
[2019-09-21 10:35] VITALS: BP 126/72
== END 2019-09-21 10:36 | disposition home or self-care (01) ==
LOC: ER 08:37
DX: M54.41 Lumbago with sciatica, right side (principal); M79.604 Pain in right leg; M54.9 Dorsalgia, unspecified; R30.0 Dysuria; F17.200 Nicotine dependence, unspecified, uncomplicated
CPT/HCPCS: 99282; 96372; 96374; 81001; J1885; J3490; J2930

== ENCOUNTER 2019-12-28 09:52 | Emergency (ER) | payer SELFPAY ==
[2019-12-28] MEDS ORDERED: ONDANSETRON HCL INJ/PF 4 MG/2 ML SDV IV ONE (10:11)
[2019-12-28] MEDS ORDERED: NORMAL SALINE 1000 ML 1,000 ML IV ONE (10:11)
[2019-12-28 10:40] LABS: ABSOLUTE EOSINOPHILS # (AUTO) 0.1 10^3/uL (0.0-0.6); ABSOLUTE LYMPHOCYTES (AUTO) 0.6 10^3/uL (0.5-4.7); ABSOLUTE MONOCYTES (AUTO) 1.6 10^3/uL (0.1-1.4); ABSOLUTE NEUT (AUTO) 7.4 10^3/uL (1.7-8.2); BASOPHILS % (AUTO) 0.4 % (0-2); EOSINOPHILS % (AUTO) 0.6 % (0-6); HEMOGLOBIN 14.5 g/dL (13.5-17.0); LYMPHOCYTES % (AUTO) 6.1 % (13-45); MEAN CORPUSCULAR HEMOGLOBIN 31.9 pg (27.0-33.4); MEAN CORPUSCULAR HGB CONC 35.5 g/dL (32.0-36.0); MEAN CORPUSCULAR VOLUME 90 fl (80-97); MONOCYTES % (AUTO) 16.1 % (3-13); PLATELET COUNT 143 10^3/uL (150-450); RED BLOOD COUNT 4.56 10^6/uL (4.35-5.55); RED CELL DISTRIBUTION WIDTH 13.6 % (11.5-14.0); SEGMENTED NEUTROPHILS % (AUTO) 76.8 % (42-78); TOTAL CELLS COUNTED % (AUTO) 100 %; WHITE BLOOD COUNT 9.6 10^3/uL (4.0-10.5)
--- NOTE | 2019-12-28 10:59 | ER Document Report ---
ED General - General Chief Complaint: Nausea/Vomiting/Diarrhea Stated Complaint: NAUSEA,VOMITING,DIARRHEA Time Seen by Provider: 12/28/19 10:27 TRAVEL OUTSIDE OF THE [place] IN LAST 30 DAYS: No - HPI Notes: 29-year-old male with a history of IV drug abuse presents to the emergency room for complaints of having abdominal pain that started 4 to 5 days ago, states he is having body aches and feels like his skin is crawling. Patient states he has been in opioid oral drug abuser for the last 15 years, he started with IV drug use a few months ago. Patient states he last used heroin at 4 AM this morning. States he does not roughly 2 g each time and he injects 4-5 times a day. Patient reports nausea vomiting and having loose stool. Patient is here with his partner who is also having similar symptoms. Denies having history of pancreatitis. denies have any back pain, neck pain. he states he has not slept in 3 to 4 days. patient is unsure if he is withdrawing from his medications, has never been to a rehab facility. Denies fevers, chills, chest pain,palpitations, shortness of breath, dyspnea, hematuria,blurred vision, double vision, loss of vision, speech changes, LH, dizziness, syncope, headaches, wheezing, ST, URI, neck pain, weakness, bowel or bladder dysfunction, saddle anesthesia, numbness or tingling in bilateral upper or lower extremities equally, muscle paralysis, weakness in bilateral upper or lower extremities equally or rash. Reports IV drug use. MEDICATIONS: I agree with the patient medications as charted by the RN. ALLERGIES: I agree with the allergies as charted by the RN. PAST MEDICAL HISTORY/PAST SURGICAL HISTORY: Reviewed and agree as charted by RN. SOCIAL HISTORY: Reviewed and agree as charted by RN. FAMILY HISTORY: No significant familial comorbid conditions directly related to patient complaint EXAM: Reviewed vital signs as charted by RN. REVIEW OF SYSTEMS:reviewed vital signs by RN CONSTITUTIONAL : Denies fever, chills, or sweats. Denies recent illness. EENT: Denies eye, ear, throat, or mouth pain or symptoms. Denies nasal or sinus congestion or discharge. Denies throat, tongue, or mouth swelling or difficulty swallowing. CARDIOVASCULAR: Denies chest pain. Denies palpitations or racing or irregular heart beat. Denies ankle edema. RESPIRATORY: Denies cough, cold, or chest congestion. Denies shortness of breath, difficulty breathing, or wheezing. GASTROINTESTINAL: reports abdominal pain. denies abdominal distention. reports nausea, vomiting, or diarrhea. Denies blood in vomitus, stools, or per rectum. Denies black, tarry stools. Denies constipation. GENITOURINARY: Denies difficulty urinating, painful urination, burning, frequency, blood in urine, or discharge. MUSCULOSKELETAL: Denies back or neck pain or stiffness. Denies joint pain or swelling. SKIN: Denies rash, lesions or sores. HEMATOLOGIC : Denies easy bruising or bleeding. LYMPHATIC: Denies swollen, enlarged glands. NEUROLOGICAL: Denies confusion or altered mental status. Denies passing out or loss of consciousness. Denies dizziness or lightheadedness. Denies headache. Denies weakness or paralysis or loss of use of either side. Denies problems with gait or speech. Denies sensory loss, numbness, or tingling. Denies seizures. PSYCHIATRIC: Denies anxiety or stress. Denies depression, suicidal ideation, or homicidal ideation. ALL OTHER SYSTEMS REVIEWED AND NEGATIVE. Dictation was performed using [employer] voice recognition software PHYSICAL EXAMINATION: GENERAL: Well-appearing, well-nourished and in mild distress HEAD: Atraumatic, normocephalic. EYES: Pupils equal round and reactive to light, extraocular movements intact, sclera anicteric, conjunctiva are normal. ENT: Nares patent, oropharynx clear without exudates. Moist mucous membranes. NECK: Normal range of motion, supple without lymphadenopathy LUNGS: Breath sounds clear to auscultation bilaterally and equal. No wheezes rales or rhonchi. HEART: Regular rate and rhythm without murmurs ABDOMEN: Soft, nondistended abdomen. Reports abdominal tenderness on palpation of abdomen no guarding, no rebound. No masses appreciated. No CVA tenderness appreciated bilaterally Musculoskeletal: Normal range of motion, no pitting or edema. No cyanosis. NEUROLOGICAL: Cranial nerves grossly intact. Normal speech, normal gait. Normal sensory, motor exams PSYCH: Normal mood, normal affect. SKIN: Warm, Dry, normal turgor, no rashes or lesions noted. - Related Data Allergies/Adverse Reactions: No Known Allergies Allergy (Verified 07/01/19 10:34) Past Medical History - General Information source: Patient - Social History Smoking Status: Current Every Day Smoker Drug Abuse: Heroin Family History: Reviewed & Not Pertinent Patient has homicidal ideation: No Renal/ Medical History: Denies: Hx Peritoneal Dialysis Past Surgical History: Reports: Hx Orthopedic Surgery - Immunizations Immunizations up to date: Yes Physical Exam - Vital signs Vitals: Temp Pulse Resp BP Pulse Ox 98.8 F 87 14 117/62 96 12/28/19 09:57 12/28/19 09:57 12/28/19 09:57 12/28/19 09:57 12/28/19 09:57 Course - Re-evaluation Re-evalutation: 12/28/19 17:39 Afebrile vital stable in no distress after given 2 mg of Ativan for his opioid withdrawal symptoms. Mental health has been contacted to speak with patient since he is asking for help because he does not want to be an IV drug user anymore. CBC negative for leukocytosis or anemia, CMP negative for renal dysfunction, no electrolyte disturbances however his hepatic enzymes are 3 times elevated within normal limits, CT abdomen pelvis is unremarkable, liver looks normal, no cirrhosis, no VELAZQUEZ. Patient states that he has been told he has had hepatitis since he was a child, previous liver enzymes were completely normal. Since patient has been an IV drug user in the time that he states of the last couple of months since the last time as he had his liver enzymes checked at this hospital, it is possible that patient could be having hepatitis B or C, hepatitis panel is out and is pending. Consulted with Dr. Cornelio Kirk, ER supervising physician who recommended having patient tested for chlamydia if he is agreeable because this could be a reason why he has elevated liver enzymes. Patient was agreeable with being COVID testing for his symptoms. advised to self quarantine until COVID results have been known as he could possibly be spreading the virus. Advised to self quarantine, wash hands, wear mask and avoid other individuals until cover test has resulted. Referred patient to lint cleaner for further evaluation. Advised to avoid any excess of alcohol, Tylenol, drug abuse. Patient states that he felt much better after receiving 2 mg of Ativan, states this is the first time he slept in 3 to 4 days. Raul Melendez, from the mental health team did see patient at bedside and did give him resources for him to seek out drug rehabilitation. Advised to follow- up with lint cleaner and primary care provider within the next 24 to 48 hours as needed. After performing a Medical Screening Examination, I estimate there is LOW risk for ACUTE APPENDICITIS, BOWEL OBSTRUCTION, ACUTE CHOLECYSTITIS, PERFORATED DIVERTICULITIS, INCARCERATED HERNIA, PANCREATITIS, TESTICULAR TORSION or PERFORATED ULCER, thus I consider the discharge disposition reasonable. Also, there is no evidence or peritonitis, sepsis, or toxicity. I have reevaluated this patient multiple times and no significant life threatening changes are noted. The patient and I have discussed the diagnosis and risks, and we agree with discharging home with close follow-up with the understanding that symptoms and presentations can change. We also discu ssed returning to the Emergency Department immediately if new or worsening symptoms occur. We have discussed the symptoms which are most concerning (e.g., bloody stool, fever, changing or worsening pain, intractable vomiting - standard verbal up date) that necessitate immediate return. - Vital Signs Vital signs: Temp Pulse Resp BP Pulse Ox 98.8 F 87 14 117/62 96 12/28/19 09:57 12/28/19 09:57 12/28/19 09:57 12/28/19 09:57 12/28/19 09:57 - Laboratory Result Diagrams: 12/28/19 10:21 12/28/19 10:21 Laboratory results interpreted by me: 12/28/19 12/28/19 12/28/19 10:21 10:21 10:21 Plt Count 143 L Lymph % (Auto) 6.1 L Dooly % (Auto) 16.1 H Absolute Monos (auto) 1.6 H Sodium 136.9 L Chloride 109 H BUN 5 L Glucose 127 H AST 220 H ALT 228 H Alkaline Phosphatase 218 H Total Protein 5.8 L Albumin 3.2 L Urine Urobilinogen Salicylates < 1.0 L Acetaminophen < 10 L 12/28/19 12:21 Plt Count Lymph % (Auto) Dooly % (Auto) Absolute Monos (auto) Sodium Chloride BUN Glucose AST ALT Alkaline Phosphatase Total Protein Albumin Urine Urobilinogen 2.0 H Salicylates Acetaminophen Discharge - Discharge Clinical Impression: Elevated liver enzymes, Abdominal pain, IV drug user Condition: Stable Disposition: HOME, SELF-CARE Instructions: Abdominal Pain ([facility]), Low-Fat Diet ([facility]), Intravenous (IV) Fluids ([facility]), Antinausea Medication ([facility]) Additional Instructions: ABDOMINAL PAIN: There are many causes of abdominal pain. Pain can mean a serious problem requiring surgery (such as appendicitis). It can also be an innocent problem that goes away on its own (such as a viral infection). Often, time must pass to determine the cause of pain. The physician does not feel that hospitalization is necessary, at present. Things may change within the next 24 hours. Call the doctor or come back for re- examination if any problems occur, such as: (1) Pain that becomes more severe, steady, or becomes concentrated in one specific area. Also, pain that is more severe with movement or coughing. (2) Vomiting that persists or becomes more frequent. (3) Blood in the vomitus, urine, or bowel movements. Blood in the stool may have a tarry or black appearance. (4) Shaking chills or fever greater than 100 degrees F. (5) The abdomen becomes more distended or swollen. (6) Bowel movements cease. (7) Failure to improve as expected. NORMAL EXAM AND WORKUP: At this time, your examination and workup show no significant abnormality. No significant abnormal physical findings are noted. All laboratory, EKG, and imaging (x-ray, CT scans, ultrasound) studies that were ordered show no significant abnormality. Although your examination and all studies that were ordered showed no significant abnormal finding, there are no examinations and no studies that are 100% accurate. There is always the possibility that some abnormality could exist and not be detected with physical examination or within the limits and capabilities of laboratory and other studies. You should return or follow up as you were instructed on your visit today for further evaluation if your symptoms do not resolve. TORADOL INJECTION: You have been given an injection of ketorolac tromethamine (Toradol). This is an excellent, safe drug for pain control. It also has potent antiinflammatory action. You should have significant pain relief within about one hour. Toradol is not addicting and is non-sedating. It does not interfere with driving or work. Call or return if you develop itching, hives, shortness of breath, or rash. PAIN MEDICATION INJECTION: You have received an injection of a pain medication. You should experience significant pain relief within 45 minutes. This drug is a narcotic -- it will impair your judgement, slow your reaction time and make you sleepy (as well as relieve your pain). Narcotics also can cause nausea. You should not drive, work with machinery, or perform any task requiring mental alertness until all effects of the medication are gone -- six to eight hours. Do not take any alcohol, or sedatives, and do not take any other medication without checking with your physician. ANTINAUSEA MEDICATION: You have been given a medication to suppress nausea and vomiting. This type of medication can be given as a shot, pill, or suppository. It will usually last for many hours. Pills and shots usually last six to eight hours, suppositories last about 12 hours. For the typical illness, only one or two doses of the medication may be necessary. Mild lightheadedness may occur. This type of medicine can cause drowsiness. Do not drive or operate dangerous machinery while under its influence. Do not mix with alcohol. See your doctor at once if you have muscle spasms or tightness, or uncontrollable motions (particularly of the neck, mouth, or jaw). Persistent vomiting or severe lightheadedness should also be evaluated by the physician. FOLLOW-UP CARE: If you have been referred to a physician for follow-up care, call the physicians office for an appointment as you were instructed or within the next two days. If you experience worsening or a significant change in your symptoms, notify the physician immediately or return to the Emergency Department at any time for re-evaluation. FOLLOW-UP CARE: You should return for re-evaluation in 12 hours. This follow-up visit is important. If you are unable to return, or feel that the return visit is unnecessary, please call us. You had elevated liver enzymes 3 times the normal limit. Your CT showed that you had a normal liver. This may be related to hepatitis infection. You do need to follow-up with a lint cleaner for further evaluation. Please limit any alcohol use, Tylenol medication, etc as this can worsen your liver function. Return immediately for any new or worsening symptoms. Follow up with primary care provider, call tomorrow to make followup sandi ointment. Prescriptions: Ondansetron [Zofran Odt 4 mg Tablet] 1 - 2 tab PO Q4H PRN #15 tab.rapdis PRN Reason: For Nausea/Vomiting Referrals: HEAVEN VARGAS MD [ACTIVE STAFF] - Follow up as needed JOSAFAT AMAOR MD [ACTIVE STAFF] - Follow up as needed
[2019-12-28 11:04] LABS: ALBUMIN 3.2 g/dL (3.5-5.0); ALKALINE PHOSPHATASE 218 U/L (38-126); ANION GAP 5 (5-19); ASPARTATE AMINO TRANSFERASE 220 U/L (17-59); BILIRUBIN,DIRECT 0.4 mg/dL (0.0-0.4); BILIRUBIN,TOTAL 0.5 mg/dL (0.2-1.3); BLOOD UREA NITROGEN 5 mg/dL (7-20); CALCIUM 8.4 mg/dL (8.4-10.2); CARBON DIOXIDE 23 mmol/L (22-30); CHLORIDE 109 mmol/L (98-107); GLUCOSE 127 mg/dL (75-110); POTASSIUM 3.7 mmol/L (3.6-5.0); TOTAL PROTEIN 5.8 g/dL (6.3-8.2)
--- NOTE | 2019-12-28 11:08 | RADIOLOGY REPORT (SQ) ---
EXAM DESCRIPTION: CHEST SINGLE VIEW IMAGES COMPLETED DATE/TIME: 12/28/2019 10:40 am REASON FOR STUDY: sob COMPARISON: None. EXAM PARAMETERS: NUMBER OF VIEWS: One view. TECHNIQUE: Single frontal radiographic view of the chest acquired. RADIATION DOSE: NA LIMITATIONS: None. FINDINGS: LUNGS AND PLEURA: No opacities, masses or pneumothorax. No pleural effusion. MEDIASTINUM AND HILAR STRUCTURES: No masses. Contour normal. HEART AND VASCULAR STRUCTURES: Heart normal in size. Normal vasculature. BONES: No acute findings. HARDWARE: None in the chest. OTHER: No other significant finding. IMPRESSION: NO ACUTE RADIOGRAPHIC FINDING IN THE CHEST. TECHNICAL DOCUMENTATION: JOB ID: [id number] 2010 [employer]- All Rights Reserved Reading location - IP/workstation name: [email or web address]
[2019-12-28 11:18] LABS: ACETAMINOPHEN < 10 ug/mL (10-30); ALCOHOL < 10 mg/dL (NONE DETECTED); SALICYLATE < 1.0 mg/dL (2.0-20.0)
[2019-12-28] MEDS ORDERED: LORAZEPAM INJ 2 MG/1 ML VIAL IV ONE (12:03)
[2019-12-28 13:05] LABS: APPEARANCE,URINE CLEAR; BILIRUBIN,URINE NEGATIVE (NEGATIVE); COLOR,URINE YELLOW; GLUCOSE, URINE NEGATIVE (NEGATIVE); KETONES,URINE NEGATIVE (NEGATIVE); LEUKOCYTE ESTERASE,URINE NEGATIVE (NEGATIVE); NITRITE,URINE NEGATIVE (NEGATIVE); PROTEIN,URINE NEGATIVE (NEGATIVE); URINE SPECIFIC GRAVITY 1.009
[2019-12-28 14:26] LABS: URINE AMPHETAMINES SCREEN NEGATIVE; URINE BARBITURATES SCREEN NEGATIVE; URINE BENZODIAZEPINES SCREEN NEGATIVE; URINE COCAINE SCREEN NEGATIVE; URINE METHADONE SCREEN NEGATIVE; URINE PHENCYCLIDINE SCREEN NEGATIVE
[2019-12-28 14:27] LABS: URINE MARIJUANA (THC) SCREEN UNCONFIRMED POSITIVE
--- NOTE | 2019-12-28 14:38 | PSYCHOLOGICAL NOTE ---
Psych Note - Psych Note Date seen by psych provider: 12/28/19 Time seen by psych provider: 12:57 Psych Note: Reason for Consult: Detox Pt arrives via ems for n/v/d for a couple days. Pt states that he began using heroin IV 3 weeks ago. pt states that he uses several times per day and used 4 hrs ago. pt states "he wants help to stop using." Patient confirms he would like resource list for detox facilities. He reports his current symptoms started prior to decreasing his heroin intake. Clinician explained, due to symptoms being present prior to changing heroin intake, patient will most likely need to self quarantine for 2 weeks before any detox facility will admit him. Patient confirms he understands. He has no further concerns at this time. Patient is alert and orientated to person, place, time and circumstance. Mood and affect are blunted due to illness and possible withdrawal. Patient denies suicidal and homicidal ideation. Delusions are absent and behaviors congruent with an intact reality based presentation i.e. organized and linear thought process. Eye contact is fair to poor as patient is noted to not feel well. Patient is observed curled into a ball on his side with his eyes closed. Conversational speech is quiet however easily understood. Intellectual abilities appear to be within the average range. Attention and concentration are fair. Insight, judgment, impulse control is fair. Impression\\plan: Patient is cleared from acute psychiatric services. Patient requested resources for assistance in detox. He confirms he understands that due to current medical symptoms he may need to self quarantine for 2 weeks. Patient was advised to discuss this with his attending physician. At this time resources have been provided to the patient to include detox facilities and mobile crisis contact information. Patient is highly encouraged to follow through with substance abuse treatment. Dr. Beck was consulted to care management of this patient; tending physicians in agreement with recommendations and disposition.
--- NOTE | 2019-12-28 15:29 | RADIOLOGY REPORT (SQ) ---
EXAM DESCRIPTION: CT ABD/PELVIS WITH IV ONLY IMAGES COMPLETED DATE/TIME: 12/28/2019 2:59 pm REASON FOR STUDY: abd pain for 4 days, n/v/d COMPARISON: CT abdomen pelvis 11/08/2018 TECHNIQUE: CT scan of the abdomen and pelvis performed using helical scanning technique with dynamic intravenous contrast injection. No oral contrast. Images reviewed with lung, soft tissue, and bone windows. Reconstructed coronal and sagittal MPR images reviewed. Delayed images for evaluation of the urinary system also acquired. All images stored on PACS. All CT scanners at this facility use dose modulation, iterative reconstruction, and/or weight based d osing when appropriate to reduce radiation dose to as low as reasonably achievable (ALARA). [facility]: Dose Right [facility]: CareDose [facility]: Dose Right [facility]: Teradose 4D [facility]: [employer] CONTRAST TYPE AND DOSE: contrast/concentration: Isovue 350.00 mmol/ml; Total Contrast Delivered: 52. 6 ml; Total Saline Delivered: 61.4 ml RENAL FUNCTION: None required. The patient is less than 50 years old. RADIATION DOSE: CT Rad equipment meets quality standard of care and radiation dose reduction techniq ues were employed. CTDIvol: 6.1 - 8.4 mGy. DLP: 797 mGy-cm.. LIMITATIONS: None. FINDINGS: LOWER CHEST: No significant findings. No nodules or infiltrates. LIVER: Normal size. No masses. No dilated ducts. SPLEEN: Normal size. No focal lesions. PANCREAS: No masses. No significant calcifications. No adjacent inflammation or peripancreatic fluid collections. Pancreatic duct not dilated. GALLBLADDER: No identified stones by CT criteria. No inflammatory changes to suggest cholecystitis. ADRENAL GLANDS: No significant masses or asymmetry. RIGHT KIDNEY AND URETER: No solid masses. No significant calcification. No hydronephrosis or hydroure ter. LEFT KIDNEY AND URETER: No solid masses. No significant calcification. No hydronephrosis or hydrouret er. AORTA AND VESSELS: No aneurysm. No dissection. Renal arteries, SMA, celiac without stenosis. RETROPERITONEUM: No retroperitoneal adenopathy, hemorrhage or masses. BOWEL AND PERITONEAL CAVITY: No masses or inflammatory changes. No free fluid or peritoneal masses. APPENDIX: Normal. PELVIS: No mass. No free fluid. Normal bladder. ABDOMINAL WALL: No masses. No hernias. BONES: No significant or acute findings. OTHER: No other significant finding. IMPRESSION: Unremarkable contrast-enhanced CT of the abdomen and pelvis. TECHNICAL DOCUMENTATION: JOB ID: [id number] Quality ID # [id number]: Final reports with documentation of one or more dose reduction techniques (e.g., Au tomated exposure control, adjustment of the mA and/or kV according to patient size, use of iterative reconstruction technique) 2010 [employer]- All Rights Reserved Reading location - IP/workstation name: [email or web address]
[2019-12-28 16:40] VITALS: BP 105/66
--- NOTE | 2019-12-28 17:06 | EKG REPORT ---
SEVERITY:- NORMAL ECG - SINUS RHYTHM ST ELEV, PROBABLE NORMAL EARLY REPOL PATTERN : Confirmed by: Neil Park 28-Dec-2019 17:06:03
[2019-12-30 13:37] LABS: HEPATITS B SURFACE ANTIGEN Negative (Negative)
[2019-12-31 06:58] LABS: HEPATITIS C VIRUS ANTIBODY <0.1 s/co ratio (0.0-0.9)
== END 2019-12-28 16:34 | disposition home or self-care (01) ==
LOC: ER 09:52
DX: R74.8 Abnormal levels of other serum enzymes (principal); R10.9 Unspecified abdominal pain; F19.10 Other psychoactive substance abuse, uncomplicated; R11.2 Nausea with vomiting, unspecified; R19.7 Diarrhea, unspecified; F17.200 Nicotine dependence, unspecified, uncomplicated; Z20.828 Contact with and (suspected) exposure to other viral communicable diseases
CPT/HCPCS: 93005; 99285; 96361; 96374; 96375; 36415; 80307 ×4; 83690; 85025; 87635; 80053; 81001; 80074; 71045; 74177; 93010; J2060; J2405; J7030; C9803